=== PATIENT | female | born 1965 | race Caucasian/White ===

== ENCOUNTER 2018-09-01 08:48 | Observation (INO) | payer MEDICARE ==
[2018-08-31 17:06] LABS: BASOPHILS # (AUTO) 0.1 (0.0-0.1); BASOPHILS % 0.9 % (0.0-1.0); EOSINOPHILS # (AUTO) 0.2 (0.0-0.4); EOSINOPHILS % 3.2 % (0.0-6.0); HEMATOCRIT 35.3 % (34.2-44.1); HEMOGLOBIN 11.4 g/dL (12.0-16.0); LYMPHOCYTES % 30.7 % (18.0-39.1); MEAN CORPUSCULAR HEMOGLOBIN 28.6 pg (28-32); MEAN CORPUSCULAR HGB CONC 32.3 g/dL (31-35); MEAN CORPUSCULAR VOLUME 88.5 fL (81-99); MONOCYTES # (AUTO) 0.8 (0.2-0.8); MONOCYTES % 11.6 % (4.4-11.3); NEUTROPHILS # (AUTO) 3.4 (2.1-6.9); NEUTROPHILS % 52.5 % (38.7-80.0); PLATELET COUNT 192 x10e3/uL (140-360); RED BLOOD COUNT 3.99 x10e6/uL (3.6-5.1); RED CELL DISTRIBUTION WIDTH 12.5 % (11.7-14.4)
[2018-08-31 17:09] LABS: INR 0.86; PROTHROMBIN TIME 12.2 seconds (11.9-14.5)
[2018-08-31 17:10] LABS: PARTIAL THROMBOPLASTIN TIME 25.9 seconds (23.8-35.5)
[2018-08-31 17:17] LABS: BLOOD UREA NITROGEN 16 mg/dL (7-26); BUN/CREATININE RATIO 21 (6-25); CALCIUM 9.3 mg/dL (8.4-10.2); CARBON DIOXIDE 26 mmol/L (22-29); CHLORIDE 103 mmol/L (98-107); CREATININE, SERUM 0.75 mg/dL (0.57-1.11); EST GLOMERULAR FILTRATION RATE > 60 ML/MIN (60-); GLUCOSE 92 mg/dL (74-118); SODIUM 138 mmol/L (136-145)
--- NOTE | 2018-08-31 17:22 | Diagnostic Imaging Report ---
EXAMINATION: CHEST 2 VIEWS INDICATION: Preop neck surgery ^PRE-OP ORDER ^[id number] ^1645 COMPARISON: None FINDINGS: PA and lateral views TUBES and LINES: None. LUNGS: Lungs are well inflated. There is no evidence of pneumonia or pulmonary edema. PLEURA: No pleural effusion or pneumothorax. HEART AND MEDIASTINUM: The cardiomediastinal silhouette is unremarkable. BONES AND SOFT TISSUES: A fusion plate in the lower cervical spine is intact without surrounding lucency. Mild degenerative changes of the thoracic spine. Soft tissues are unremarkable. UPPER ABDOMEN: No free air under the diaphragm. Cholecystectomy clips are present. IMPRESSION: No acute thoracic abnormality. Signed by: Dr. Marcelino Hugo MD on 08/31/2018 5:19 PM
[~2018-09-01] VITALS: Ht 162.6 cm; Wt 84.8 kg
[~2018-09-01 08:48] MED LIST: ACETAMINOPHEN 1000 MG/100 ML 100 ML IV ONE; ALENDRONATE SOD70 MG PO; ATORVASTATIN CA20 MG PO; IBUPROFEN 800MG/ 250ML 250 ML IV ONE; LIDOCAINE HCL (LTA) 4 ML SOLN ONE; LOSARTAN POTAS100 MG PO; NEXIUM40 MG PO; SERTRALINE HCL100 MG PO; SYNTHROID137 MCG PO
--- OUTSIDE RECORDS SUMMARY | 2018-09-01 08:51 | XMS REPORT | Clinical Summary ---
Author [facility] Address Unknown Phone Unavailable Care Team Providers Care Framing Machine Tender Name Role Phone Brandon Redding PCP Allergies Not on File Medications Not on file Active Problems Not on file Encounters Care Team Description Date Type Specialty Marc Andrews MD 08/16/2018 Anesthesia Event Virtual, Surgeon PROCEDURE DONE OUTSIDE OR 08/16/2018 Surgery 08/16/2018 Hospital Encounter Roel Villanueva MD Chronic pain syndrome (Primary Dx); Lumbar radiculopathy 07/21/2018 Outside Orders Roel Villanueva MD Chronic pain syndrome 05/12/2018 Hospital Radiology Encounter Roel Villanueva MD Chronic pain syndrome 05/12/2018 Hospital Radiology Encounter Roel Villanueva MD Chronic pain syndrome (Primary Dx) 05/12/2018 Outside Orders Central Scheduling after 08/31/2017 Social History Date Tobacco Use Types Packs/Day Years Used Never Assessed Sex Assigned at Date Recorded Not on file Industry Job Start Date Occupation Not on file Not on file Not on file Travel End Travel History Travel Start No recent travel history available. Last Filed Vital Signs Not on file Plan of Treatment Not on file Procedures Comments Procedure Name Priority Date/Time Associated Diagnosis XR LUMBAR SPINE COMP WITH Routine 05/12/2018 Chronic pain syndrome FLEX&EXT 10:50 AM AUTO JOB ESTIMATOR XR SPINE CERVICAL 2 OR 3 Routine 05/12/2018 Chronic pain syndrome VIEWS 10:50 AM AUTO JOB ESTIMATOR after 08/31/2017 Results * XR lumbar spine comp with flex & ext (05/12/2018 10:50 AM AUTO JOB ESTIMATOR) Specimen Narrative Performed At [facility] Exam:Lumbar spine AP lateral oblique flexion extension History:Back pain Comparison: None. Findings: No fracture or malalignment. Degenerative endplate change without significant narrowing. Facet arthrosis L4-5 L5-S1. No abnormal soft tissue calcification or soft tissue defect.Right upper quadrant clips. Impression: No acute osseous abnormality Lower lumbar facet arthrosis Signed: Derrick Stroud MD Report Verified Date/Time:05/12/2018 11:13:05 Procedure Note Interface, External Ris In - 05/12/2018 11:15 AM AUTO JOB ESTIMATOR [facility] Exam: Lumbar spine AP lateral oblique flexion extension History: Back pain Comparison: None. Findings: No fracture or malalignment. Degenerative endplate change without significant narrowing. Facet arthrosis L4-5 L5-S1. No abnormal soft tissue calcification or soft tissue defect. Right upper quadrant clips. Impression: No acute osseous abnormality Lower lumbar facet arthrosis Signed: Derrick Stroud MD Report Verified Date/Time: 05/12/2018 11:13:05 Performing Organization Address City/State/Zipcode Phone Number [facility] * XR Spine Cervical 2 or 3 Views (05/12/2018 10:50 AM AUTO JOB ESTIMATOR) Specimen Narrative Performed At [facility] Exam:Cervical spine lateral flexion-extension History:Neck pain Comparison: None. Findings: Retrolisthesis of C4 on C5. Anterior cervical discectomy and fusion of C5-C6 with plate screw construct. No hypermobility on flexion-extension. Atlantodental interval normal. Impression: No acute osseous abnormality Anterior cervical discectomy and fusion of C5-C6 Signed: Derrick Stroud MD Report Verified Date/Time:05/12/2018 11:16:43 Procedure Note Interface, External Ris In - 05/12/2018 11:18 AM AUTO JOB ESTIMATOR [facility] Exam: Cervical spine lateral flexion-extension History: Neck pain Comparison: None. Findings: Retrolisthesis of C4 on C5. Anterior cervical discectomy and fusion of C5-C6 with plate screw construct. No hypermobility on flexion-extension. Atlantodental interval normal. Impression: No acute osseous abnormality Anterior cervical discectomy and fusion of C5-C6 Signed: Derrick Stroud MD Report Verified Date/Time: 05/12/2018 11:16:43 Performing Organization Address City/State/Zipcode Phone Number [facility] after 08/31/2017 Insurance Payer Benefit Subscriber ID Type Phone Address Plan / Group MEDICARE MEDICARE A xxxxxxxxxxx Medicare B
--- OUTSIDE RECORDS SUMMARY | 2018-09-01 08:51 | XMS REPORT ---
Author Author [facility] Organization [facility] Address Unknown Phone Unavailable Care Team Providers Care Development Technician Name Role Phone ENRIQUETA PIMENTEL Unavailable Unavailable Payers Payer Name Policy Type Policy Number Effective Date Expiration Date Problems This patient has no known problems. Allergies, Adverse Reactions, Alerts Allergy Name Allergy Type Status Severity Reaction(s) Onset Date Inactive Date Treating Clinician Comments Penicillins DA Active UT 2015-01-28 00:00:00 promethazine DA Active SV 2015-01-28 00:00:00 Medications This patient has no known medications. Results Test Description Test Time Test Comments Text Results Atomic Results Result Comments CHEST 2 VIEWS 2018-08-31 17:18:00 [place] [address] Patient Name: TERESA ANGULO MR #: [id number] : 1965 Age/Sex: 53/F Req #: [id number] Adm Physician: Ordered by: ENRIQUETA PIMENTEL MD Report #: [id number] Location: OR Room/Bed: Procedure: [id number] DX/CHEST 2 VIEWS Exam Date: 08/31/18 Exam Time: 1644 REPORT STATUS: Signed EXAMINATION: CHEST 2 VIEWS INDICATION: Preop neck s urgery PRE-OP ORDER [id number] COMPARISON: None FINDINGS: PA and lateral views TUBES and LINES: None. LUNGS: Lungs are well inflated. There is no evidence of pneumonia or pulmonary edema. PLEURA: No pleural effusion or pneumothorax. HEART AND MEDIASTINUM: The cardiomediastinal silhouette is unremarkable. BONES AND SOFT TISSUES: A fusion plate in the lower cervical spine is intact without surrounding lucency. Mild degenerative changes of the thoracic spine. Soft tissues are unremarkable. UPPER ABDOMEN: No free air under the diaphragm. Cholecystectomy clips are present. IMPRESSION: No acute thoracic abnormality. Signed by: Dr. Melissa Hugo MD on 08/31/2018 5:19 PM Dictated By: MELISSA HUGO MD 18 Transcribed By: MAKAYLA on 08/31/181718 COPY TO: ENRIQUETA PIMENTEL MD - XR MYELOGRAM C-SPINE 2018-08-31 09:34:00 FAX: Brandon Cruz MD [phone] [place]: St: [facility] FAX: Enriqueta Gregory MD [phone] Name: KEVTERESA FREDRICK [facility] : 1965 Age/S: 53/F [address] Unit #: [id number] Loc: [facility] [place] [address] Phys: Олег Escamilla MD Acct: [id number] Dis Date: Status: [facility] PHONE #: [phone] Exam Date: 08/29/2018 1130 FAX #: [phone] Reason: MID-CERVICAL DISC DISORDER EXAMS: CPT CODE: [id number] XR MYELOGRAM C-SPINE 77791 EXAM: Cervical myelography via lumbar puncture; INFORMATION: Patient with severe neck pain and radiculopathy; TECHNIQUE AND FINDINGS: Informed consent was obtained and the patient was placed prone on the procedure table. Her lumbar region was prepped and draped in the usual sterile fashion. Xylocaine was administered thecal sac was accessed at the L3 level under fluoroscopic guidance, using a 20-gauge spinal needle and a left paramedian approach. 30 mL of contrast material were injected and good opacification of the thecal sac was seen in the lumbar region. The patient was then placed in prone Trendelenburg position, to shift the contrast column into the cervical spine. Good contrast opacification of the thecal sac in the cervical spine was noticed. Also demonstrated was status post anterior fusion of C5 and 6. Subsequently the patient was taken to the CT scanner. IMPRESSION: 1. Successful cervical myelogram via lumbar puncture. 2. Regarding detailed diagnostic information, I refer to the CT report. Fluoroscopy Time: 96 sec CAK : 143.742 mGy at 0934 Reported and signed by: Олег Escamilla M.D. CC: Brandon Redding MD; Enriqueta Pimentel MD Technologist: Sandra Tillman RT(R) Trnscrd Date/Time/By: 08/31/2018 (933) : By: LloydGRW [facility] Print D/T: S: 08/31/2018 (0938) PAGE 1 Signed Report - CT C-SPINE W/CONTRAST 2018-08-29 14:46:00 Name: TERESA ANGULO [facility] : 1965 Age/S: 53 / F [address] Unit #: [id number] Loc: [place] [address] Phys: Олег Escamilla MD Acct: [id number] Dis Date: Status: [facility] PHONE #: [phone] Exam Date: 08/29/2018 1317 FAX #: [phone] Reason: MYELOGRAM EXAMS: CPT CODE: [id number] CT C-SPINE W/CONTRAST 96263 TECHNIQUE: - CT C-SPINE W/CONTRAST . This exam was performed using one or more of the following dose reduction techniques: Automated exposure control, adjustment of the mA and/ or kV according to patient size or use of iterative reconstruction technique. COMPARISON: None provided. HISTORY: 53 years Female MYELOGRAM FINDINGS: There is good distention of the thecal sac with contrast from the myelogram. Prior fusion C5/C6 with anatomic alignment. Bones: No acute fractures. No suspicious focal lesion. Alignment: No subluxation. Soft tissues: No abnormalities. Prevertebral soft tissues, perivertebral soft tissues are normal. Intervertebral discs: C2/C3: No impingement. C3/C4: Mild posterior disc bulge. Mild spondylosis. No impingement. C4/C5: Moderate posterior disc bulge. Moderate central canal stenosis. Flattening of the cervical cord. Mild neural foramen stenosis. No impingement. C5/C6: Fusion C5/C6 with anatomic alignment. Artifact distortion of images at this level. Mild central canal stenosis. C6/C7: Moderate posterior disc bulge. Moderate central canal stenosis. Minimal flattening of the cervical cord. No definite impingement on the cervical cord. Mild neural foramen stenosis. C7/T1: Normal impingement. Other: None. PAGE 1 Signed Report (CONTINUED) Name: TERESA ANGULO [facility] : 1965 Age/S: 53 / F [address] Unit #: [id number] Loc: [place] [address] Phys: Олег Escamilla MD Acct: [id number] Dis Date: Status: [facility] PHONE #: [phone] Exam Date: 08/29/2018 1317 FAX #: [phone] Reason: MYELOGRAM EXAMS: CPT CODE: [id number] CT C-SPINE W/CONTRAST 32559 <Continued> IMPRESSION: C3/C4: Mild posterior disc bulge. Mild spondylosis. No impingement. C4/C5: Moderate posterior disc bulge. Moderate central canal stenosis. Flattening of the cervical cord. Mild neural foramen stenosis. No impingement. C5/C6: Fusion C5/C6 with anatomic alignment. Artifact distortion of images at this level. Mild central canal stenosis. C6/C7: Moderate posterior disc bulge. Moderate central canal stenosis. Minimal flattening of the cervical cord. No definite impingement on the cervical cord. Mild neural foramen stenosis. at 1446 Reported and signed by: Aaron Adler M.D. CC: Brandon Redding MD; Enriqueta Pimentel MD Technologist:Savannah Hare RT(R),CT; CTDI: DLP: Trnscb Date/Time: 08/29/2018 (8196) [email or web address] Orig Print D/T: S: 08/29/2018 (6986) PAGE 2 Signed Report BLOOD UREA NITROGEN 2018-08-26 15:53:00 BLOOD UREA NITROGEN (test code=BUN) 22 mg/dL 7- [id number] 15:53:00* Test Item Value Reference Range Comments CREATININE (test code=CREAT) 0.80 mg/dL 0.55-1.02 Note change in reference range due to change in reagent. BLOOD UREA [id number] 15:44:00* Test Item Value Reference Range Comments BLOOD UREA NITROGEN (test code=BUN) 22 mg/dL - [id number] 15:44:00* Test Item Value Reference Range Comments CREATININE (test code=CREAT) mg/dL 0.55-1.02 PROTHROMBIN [id number] 15:36:00* Test Item Value Reference Range Comments PROTHROMBIN TIME PATIENT (test code=PTP) 10.2 seconds 9.0-14.0 INTERNATIONAL NORMAL RATIO (test code=INR) 0.9 0.8-1.2 The therapeutic range for oral anticoagulant therapy formost indications is an international normalized ratio (INR)of between 2.0 and 3.0. The recommended therapeutic INRrange for various clinical situations is listed below: Clinical Situation INR range Pulmonary e mbolism treatment (2.0-3.0)Venous thrombosis treatmentVenous thrombosis prophylaxis (high risk surgery)Prevention of systemic embolism from: Acute myocardial infarction Valvular heart disease Atrial fibrillation Mechanical prosthetic heart valves (2.5-3.5) THROMBOPLASTIN TIME [id number] 15:36:00* Test Item Value Reference Range Comments THROMBOPLASTIN TIME PARTIAL (test code=PTT) 28.6 seconds 25.0-36.5 PLATELET [id number] 15:29:00* Test Item Value Reference Range Comments PLATELET COUNT (test code=PLT) 205 K/mm3 150-450 RAD, SPINE, CERVICAL, 2 OR 3 [id number] 11:16:00Cervical spine pain Spondylosis and history of fusion. Left side worse than rightReason for Exam:-> chronic pain syndromeFINAL REPORT Exam: Cervical spine lateral flexion-extension History: Neck pain Comparison: None. Findings: Retrolisthesis of C4 on C5. Anterior cervical discectomy and fusion of C5-C6 with plate screw construct. No hypermobility on flexion-extension. Atlantodental interval normal. Impression: No acute osseous abnormality Anterior cervical discectomy and fusion of C5-C6 Signed: Derrick Stroud Verified Date/Time: 05/12/2018 11:16:43 , SPINE, LUMBAR, COMPLETE, WITH [id number] 11:13:00Chronic low back pain and right radicular painReason for Exam:->chronic pain syndromeFINAL REPORT Exam: Lumbar spine AP lateral oblique flexion extension History: Back pain Comparison: None. Findings: No fracture or malalignment. Degenerative endplate change without significant narrowing. Facet arthrosis L4-5 L5-S1. No abnormal soft tissue calcification or soft tissue defect. Right upper quadrant clips. Impression: No acute osseous abnormality Lower lumbar facet arthrosis Signed: Derrick Stroud Verified Date/Time: 05/12/2018 11:13:05
[2018-09-01] MEDS ORDERED: CYCLOBENZAPRINE5 MG PO (10:00)
[2018-09-01] MEDS ORDERED: NORCO 7.5-3251 EACH PO (10:00)
[2018-09-01] MEDS ORDERED: VANCOMYCIN 1GM/NS 250 ML 250 ML ONE (10:16)
[2018-09-01] MEDS ORDERED: FENTANYL CITRATE/PF 100MCG/2 ML INJ ONE ×2 (10:22→17:43)
[2018-09-01] MEDS: LACTATED RINGER'S 1,000 ML IV SCH ×2 (12:01→19:45)
[2018-09-01] MEDS ORDERED: ZOLPIDEM TARTRATE 5 MG TAB PO PRN (12:15)
[2018-09-01] MEDS ORDERED: MORPHINE SULFATE 5 MG/ML VIAL IM PRN (12:15)
[2018-09-01] MEDS ORDERED: HYDROMORPHONE 2MG/ML 2 MG/ML ML IV PRN (12:15)
[2018-09-01] MEDS ORDERED: PROMETHAZINE HCL (IM) 25 MG/ML VIAL IM PRN (12:15)
[2018-09-01] MEDS ORDERED: OXYCODONE/ACETAMINOPHEN 5-325 1 EACH TABLET PO PRN ×2 (12:15→14:00)
[2018-09-01] MEDS ORDERED: MAGNESIUM/ALUMINUM/SIMETHICONE 30 ML UDC PO PRN (12:15)
[2018-09-01] MEDS ORDERED: ACETAMINOPHEN 325 MG TAB PO PRN (12:15)
--- OUTSIDE RECORDS SUMMARY | 2018-09-01 12:22 | XMS REPORT | Clinical Summary ---
Author [facility] Address Unknown Phone Unavailable Care Team Providers Care Tube Balancer Name Role Phone Brandon Redding PCP Allergies [...] 05/12/2018 Chronic pain syndrome FLEX&EXT 10:50 AM TELEVISION SCRIPT WRITER XR SPINE CERVICAL 2 OR 3 Routine 05/12/2018 Chronic pain syndrome VIEWS 10:50 AM TELEVISION SCRIPT WRITER after 08/31/2017 Results * XR lumbar spine comp with flex & ext (05/12/2018 10:50 AM TELEVISION SCRIPT WRITER) Specimen Narrative Performed At [facility] Exam:Lumbar spine AP lateral oblique flexion [...] External Ris In - 05/12/2018 11:15 AM TELEVISION SCRIPT WRITER FINAL REPORT Exam: Lumbar spine AP lateral [...] 11:13:05 Performing Organization Address City/State/Zipcode Phone Number [facility] * XR Spine Cervical 2 or 3 Views (05/12/2018 10:50 AM TELEVISION SCRIPT WRITER) Specimen Narrative Performed At [facility] Exam:Cervical spine lateral flexion-extension History:Neck pain Comparison: None. Findings: Retrolisthesis of C4 on C5. Anterior cervical discectomy and fusion of C5-C6 with plate screw construct. No hypermobility on flexion-extension. Atlantodental interval normal. Impression: No acute osseous abnormality Anterior cervical discectomy and fusion of C5-C6 Signed: Derrick Stroud MD Report Verified Date/Time:05/12/2018 11:16:43 Procedure Note Interface, External Ris In - 05/12/2018 11:18 AM TELEVISION SCRIPT WRITER [facility]AL REPORT Exam: Cervical spine lateral flexion-extension [...]
[2018-09-01] MEDS: HYDROMORPHONE 2MG/ML 2 MG/ML ML IV PRN ×2 (12:30→19:31)
[2018-09-01 13:32] VITALS: BP 134/79
[2018-09-01 13:38] VITALS: BP 134/79
[2018-09-01] MEDS ORDERED: CYCLOBENZAPRINE HCL 10 MG TAB PO PRN (14:00)
[2018-09-01 14:12] VITALS: BP 134/79
[2018-09-01] MEDS: CEPACOL SORE THROAT LOZENGES PO PRN (14:15)
[2018-09-01] MEDS: CARISOPRODOL 350 MG TAB PO PRN ×2 (14:15→19:31)
[2018-09-01 15:32] VITALS: BP 145/81
[2018-09-01] MEDS ORDERED: ROCURONIUM BROMIDE 10 MG/ML 5ML VIAL ONE (17:24)
[2018-09-01] MEDS ORDERED: LIDOCAINE HCL 2% LOCAL INJ 5 ML SDV VIAL INJ ONE (17:24)
[2018-09-01] MEDS ORDERED: PROPOFOL IV EMULSION 10 MG/ML 20 ML VIAL ONE (17:24)
[2018-09-01] MEDS ORDERED: LIDOCAINE HCL 2% JELLY 5 ML TUBE ONE (17:24)
[2018-09-01] MEDS ORDERED: NEOSTIGMINE 5 MG/5ML SYR ONE (17:24)
[2018-09-01] MEDS ORDERED: ONDANSETRON HCL INJ 2MG/ML 2ML 2 MG/ML VIAL ONE (17:24)
[2018-09-01] MEDS ORDERED: DEXAMETHASONE SOD PHOS INJ 4 MG/ML VIAL ONE (17:24)
[2018-09-01] MEDS ORDERED: SEVOFLURANE INHAL SOLN 250 ML PEN BTL ONE (17:24)
[2018-09-01] MEDS ORDERED: GLYCOPYRROLATE INJ 1MG/ 5 ML SYR ONE (17:24)
[2018-09-01] MEDS ORDERED: MIDAZOLAM HCL 2 MG/2 ML VIAL ONE (17:43)
[2018-09-01] MEDS: ONDANSETRON HCL INJ 2MG/ML 2ML 2 MG/ML VIAL IV PRN (19:31)
[2018-09-01 19:32] VITALS: BP 160/94
[2018-09-01] MEDS ORDERED: VANCOMYCIN 1GM/NS 250 ML 250 ML IV ONE (20:15)
[2018-09-01] MEDS ORDERED: ATORVASTATIN 20 MG TAB PO SCH (21:00)
[2018-09-01 21:54] VITALS: BP 160/94
[2018-09-02 00:22] VITALS: BP 154/84
[2018-09-02] MEDS: HYDROMORPHONE 2MG/ML 2 MG/ML ML IV PRN ×2 (00:24→05:20)
[2018-09-02] MEDS: CARISOPRODOL 350 MG TAB PO PRN ×2 (00:24→05:20)
[2018-09-02] MEDS: ONDANSETRON HCL INJ 2MG/ML 2ML 2 MG/ML VIAL IV PRN ×2 (00:24→05:20)
[2018-09-02 05:21] VITALS: BP 134/85
[2018-09-02] MEDS: LACTATED RINGER'S 1,000 ML IV SCH (05:31)
[2018-09-02] MEDS ORDERED: LEVOTHYROXINE SODIUM 112 MCG TAB PO SCH (06:00)
[2018-09-02] MEDS ORDERED: LEVOTHYROXINE SODIUM 25 MCG TABLET PO SCH (06:00)
[2018-09-02] MEDS: CEPACOL SORE THROAT LOZENGES PO PRN (06:47)
[2018-09-02 08:18] VITALS: BP 145/88
[2018-09-02 08:35] VITALS: BP 145/88
[2018-09-02] MEDS ORDERED: LOSARTAN POTASSIUM 100 MG TAB PO SCH (09:00)
[2018-09-02] MEDS ORDERED: PANTOPRAZOLE SOD 40 MG TABEC PO SCH (09:00)
[2018-09-02] MEDS ORDERED: NORCO 7.5-3251 EACH PO (09:26)
--- NOTE | 2018-09-02 09:43 | Diagnostic Imaging Report ---
Exam: AP and lateral cervical spine History: Fusion Comparison: None available Findings: Post operative changes with an anterior plate present from C4 to C7. Evidence of bone grafting. There is a surgical drain present. Significant prevertebral soft tissue swelling is present. Impression: Status post surgical changes as described above. Signed by: Dr. William Coon DO on 09/02/2018 9:39 AM
--- NOTE | 2018-09-02 12:11 | NUR ---
patient discharged home, Alert with no distress. Prescription given, dressing changed on anterior neck, pulled out hemovac drain with sutures out, steri strip is intact. , IV canula removed with intact, no ss of infiltration.
[2018-09-05] MEDS ORDERED: ALENDRONATE SODIUM 70 MG TAB PO SCH (06:30)
--- NOTE | 2018-09-09 20:21 | Operative Report ---
DATE OF PROCEDURE: 09/01/2018 SURGEON: Hemal Gerard MD PREOPERATIVE DIAGNOSIS: C4-C5 and C6-C7 spondylosis and disk herniations adjacent to the level of previous C5-C6 fusion,M50.120. POSTOPERATIVE DIAGNOSIS: C4-C5 and C6-C7 spondylosis and disk herniations adjacent to the level of previous C5-C6 fusion, M50.120. PROCEDURES: 1. C4-C5 anterior cervical diskectomy and microsurgical osteophyte resection and allograft fusion, 20308. 2. C6-C7 anterior cervical diskectomy and microsurgical osteophyte resection and allograft fusion, 17636. 3. Preparation of tricortical iliac crest allograft, . 4. C4, C5, C6, C7 anterior cervical plating with Synthes CSLP plate, 27531. 5. Removal of C5-C6 anterior cervical plate, 53553. 6. Exploration of C5-C6 anterior cervical fusion, . ANESTHESIA: General. INDICATIONS: The patient is a woman, who has previously undergone C5-C6 ACDF by mt in the distant past with good results. She now presents with large disk osteophyte complexes above and below the level of her fusion at C4-C5 and C6-C7 producing severe neck pain and radicular pain in the left arm. The disk herniation at C6-C7 extends superiorly behind the vertebral body of C7 and produces severe spinal stenosis. The patient was taken to the operating room for two-level anterior cervical diskectomy and fusion above and below the level of her previous surgery. DESCRIPTION OF PROCEDURE: After induction of anesthesia, the patient was placed on the operating table in supine position. The right side of the neck was prepped and draped in sterile fashion. The fluoroscopic C-arm was positioned in cross-table lateral orientation. A transverse incision was created along the skin crease on the right side of the neck superimposed on the C5-C6 disk space. The platysma was divided in line with the incision. A subplatysmal dissection was carried out and avascular plan of dissection was developed medial to the sternocleidomastoid muscle and was followed medial to the carotid sheath to the anterior border of cervical spine. The deep cervical fascia was opened. The esophagus was retracted to the left. The attachments of longus colli muscles to the anterolateral aspects of vertebral bodies of C4, C5, C6, and C7 were divided. The anterior longitudinal ligament was resected. The previous C5-C6 plate was exposed. Each of the 4 locking screws and each of the 4 bone screws within the plate were unscrewed and removed except for the lower left C6 screw, which could not be removed. The screw head and the screw were excised and its shaft was left in place within the bone. The fusion at C5-C6 was explored and found to be solid. Lacassine posts were inserted into C4-C5 and into see C6-C7 successively. At each level of the disk space was first distracted and its contents were thoroughly evacuated with curettes and pituitary rongeurs under the operating microscope. The posterior osteophytes were drilled with a 2 mm cutting bur and a high-speed drill until later they were completely removed. The posterior anulus of the disk, herniated disk material, and the posterior longitudinal ligament were resected layer by layer. The medial aspects of the uncinate processes were resected bilaterally at both levels to fully expose and decompress the origins of the corresponding nerve roots. At C6-C7, the extruded disk material, which had trended superiorly behind the C7 vertebral body was retrieved with a micro ball probe and removed. Excellent decompression was thus achieved at both levels. Two pieces of tricortical iliac crest allograft were cut to size and shapes of the disk spaces and were inserted into the spaces under distraction and fluoroscopic guidance. The distraction was released and distraction posts were removed. A Synthes CSLP variable type anterior cervical plate was selected and affixed to the vertebral bodies of C4, C5, C6, and C7 with multiple 14 x 4.35 mm screws, spanning the area of her previous C5-C6 fusion. Each screw was drilled on the lateral fluoroscopic guidance and each screw was locked with the appropriate locking screws. An excellent construct was obtained. The wound was copiously irrigated with bacitracin solution. Meticulous hemostasis was secured and the retractor was removed. The platysma was closed with 3-0 Vicryl sutures. The skin was closed with 4-0 Monocryl sutures in a subcuticular fashion. Steri-Strips and dressing were applied. The patient was awakened, extubated, and taken to postanesthesia care unit in stable condition. No intraoperative complications were encountered. Estimated blood loss was 30 mL. Hemal Gerard MD PP/NICKO /[id number]
== END 2018-09-02 12:40 | disposition home or self-care (01) ==
LOC: OR 08:48 → PACU V 12:03 → IMCU 13:42
PROVIDERS: ADMIT Neurological Surgery; ATTEND Neurological Surgery
DX: M50.121 Cervical disc disorder at C4-C5 level with radiculopathy (principal); E03.9 Hypothyroidism, unspecified; K21.9 Gastro-esophageal reflux disease without esophagitis; I10 Essential (primary) hypertension; E78.5 Hyperlipidemia, unspecified; G62.9 Polyneuropathy, unspecified; Z01.810 Encounter for preprocedural cardiovascular examination; Z01.812 Encounter for preprocedural laboratory examination; Z01.811 Encounter for preprocedural respiratory examination; Z88.0 Allergy status to penicillin; Z88.8 Allergy status to other drugs, medicaments and biological substances
CPT/HCPCS: 20931; 22551; 22552; 22830; 22845; 36415; 71046; 72040; 77003; 80048; 85025; 85610; 85730; 86850; 86900; 88304; 88311; 93005; C1713 ×5; C1763; G0378 ×2; J0131; J1100; J1170 ×2; J2001 ×2; J2250; J2405 ×2; J2704; J3370; J3490; J7121 ×2; S0164; J3010

== ENCOUNTER → 2018-09-28 | Outpatient (CLI) | payer MEDICARE ==
[~2018-09-28] MED LIST changes: -ACETAMINOPHEN 1000 MG/100 ML 100 ML IV ONE; +CYCLOBENZAPRINE5 MG PO; -IBUPROFEN 800MG/ 250ML 250 ML IV ONE; -LIDOCAINE HCL (LTA) 4 ML SOLN ONE; +NORCO 7.5-3251 EACH PO
--- NOTE | 2018-09-28 15:16 | Diagnostic Imaging Report ---
Radiographs of the cervical spine - 4 views with flexion and extension HISTORY: Pain COMPARISON: 09/02/2018 FINDINGS: Bones: No acute displaced fracture. Osseous alignment is within normal limits. Joints: Post operative changes with an anterior plate present from C4 to C7. Evidence of bone grafting. No subluxation on the flexion or extension images. The surgical hardware is intact without evidence of failure or loosening. Soft tissues: The soft tissues appear unremarkable. IMPRESSION: Post operative changes with an anterior plate present from C4 to C7. Evidence of bone grafting. No subluxation on the flexion or extension images. The surgical hardware is intact without evidence of failure or loosening. Signed by: Dr. Francisco Cortez M.D. on 09/28/2018 3:12 PM
== END ==
LOC: RAD 14:24
PROVIDERS: ATTEND Neurological Surgery
DX: M50.20 Other cervical disc displacement, unspecified cervical region (principal); M43.22 Fusion of spine, cervical region
CPT/HCPCS: 72050

== ENCOUNTER → 2020-05-06 | Outpatient (CLI) | payer MEDICARE | LOC: RAD 13:39 | DX: M25.511 Pain in right shoulder (principal); W19.XXXA Unspecified fall, initial encounter ==

== ENCOUNTER → 2020-10-29 | Outpatient (CLI) | payer MEDICARE | LOC: RAD 14:48 | DX: R07.81 Pleurodynia (principal); Z87.828 Personal history of other (healed) physical injury and trauma | CPT/HCPCS: 71101 ==